=== PATIENT | male | born 1955 | race Caucasian/White ===

== ENCOUNTER 2021-08-10 23:26 | Inpatient (IN) | payer BC ==
[~2021-08-10] VITALS: Ht 175.3 cm; Wt 90.7 kg
[2021-08-10] MEDS ORDERED: ACETAMINOPHEN 650 MG/SUPP.RECT RC ONE (23:40)
[2021-08-10] MEDS ORDERED: VANCOMYCIN 1 GM VIAL ONE (23:47)
[2021-08-10] MEDS ORDERED: PIPERACILLIN /TAZOBACTAM 3.375 G VIAL IV ONE (23:47)
[2021-08-11] VITALS (34 sets, daily range): BP systolic 53–120; BP diastolic 25–74
[2021-08-11] MEDS ORDERED: ACETAMINOPHEN 650 MG/SUPP.RECT RC ONE
[2021-08-11] MEDS ORDERED: PIPERACILLIN /TAZOBACTAM 3.375 G in IV D5W 50 ML IV ONE ×2
[2021-08-11] MEDS ORDERED: VANCOMYCIN 1 GM in IV D5W 250 ML IV ONE ×4
[2021-08-11] MEDS ORDERED: DEXTROSE 50%-WATER 50 ML DISP.SYRIN ONE (00:05)
[2021-08-11] MEDS ORDERED: DEXTROSE 50%-WATER 50 ML DISP.SYRIN IVP ONE (00:30)
[2021-08-11 00:33] LABS: BASOPHILS # (AUTO) 0.1 K/uL (0.0-0.2); BASOPHILS % (AUTO) 1.1 % (0.0-2.0); EOSINOPHILS % (AUTO) 0.4 % (0.0-6.0); HEMATOCRIT 34 % (39-51); HEMOGLOBIN 10.7 g/dL (13.5-17.5); LYMPHOCYTES # (AUTO) 1.8 K/uL (0.8-4.8); LYMPHOCYTES % (AUTO) 14.9 % (20.0-44.0); MEAN CORPUSCULAR HGB CONC 32 g/dl (31.0-36.0); MEAN CORPUSCULAR VOLUME 109 fL (80-96); MONOCYTES # (AUTO) 0.7 K/uL (0.1-1.30); MONOCYTES % (AUTO) 5.5 % (2.0-12.0); NEUTROPHILS # (AUTO) 9.5 K/uL (1.8-8.9); NEUTROPHILS % (AUTO) 78.1 % (43.0-81.0); PLATELET COUNT (AUTO) 195 K/uL (150-450); RED BLOOD CELL COUNT(AUTO) 3.13 MIL/uL (4.5-6.0); WHITE BLOOD COUNT (AUTO) 12.1 K/uL (4.3-11.0)
[2021-08-11 00:37] LABS: BILIRUBIN,URINE MODERATE (NEGATIVE); COLOR,URINE AMBER (YELLOW); LEUKOCYTE ESTERASE ,URINE NEGATIVE (NEGATIVE); NITRITE, URINE POSITIVE (NEGATIVE); PROTEIN,URINE TRACE mg/dl (NEGATIVE); UGLUCOSE NEGATIVE (NEGATIVE)
[2021-08-11 01:09] LABS: ALANINE AMINOTRANSFERASE 19 U/L (12-78); ALBUMIN 1.6 g/dL (3.4-5.0); ALKALINE PHOSPHATASE 91 U/L (46-116); ASPARTATE AMINOTRANSFERASE 49 U/L (15-37); BILIRUBIN,DIRECT 0.6 mg/dL (0.0-0.2); BILIRUBIN,TOTAL 1.2 mg/dL (0.2-1.0); CALCIUM, SERUM 7.7 mg/dL (8.5-10.1); CARBON DIOXIDE 22 mmol/L (21-32); CREATININE 2.7 mg/dL (0.6-1.3); GLUCOSE 97 mg/dL (74-106); POTASSIUM 3.7 mmol/L (3.5-5.1); TOTAL PROTEIN, SERUM 5.7 g/dL (6.4-8.2); UREA NITROGEN, BLOOD 29 mg/dL (7-18)
[2021-08-11 01:12] LABS: CHLORIDE 130 mmol/L (98-107); SODIUM SERUM 161 mmol/L (136-145)
[2021-08-11] MEDS ORDERED: IV NS 0.9% 1,000 ML BAG IV ONE ×2 (02:00)
[2021-08-11] MEDS ORDERED: ACETAMINOPHEN 650 MG/SUPP.RECT RC PRN (04:00)
[2021-08-11] MEDS ORDERED: ONDANSETRON HCL/PF 4 MG/2 ML VIAL IVP PRN (04:00)
[2021-08-11] MEDS ORDERED: IV D5W 1,000 ML IV ONE ×3 (04:00→06:30)
[2021-08-11] MEDS ORDERED: IV D5W 1,000 ML IV PRN (04:30)
[2021-08-11] MEDS ORDERED: PIPERACILLIN /TAZOBACTAM 3.375 G in IV D5W 50 ML IV SCH (06:00)
[2021-08-11 06:18] LABS: BACTERIA,URINE Rare /HPF (None Seen); RBC,URINE NONE SEEN /HPF (0-2); WBC,URINE 0-2 /HPF (0-3)
[2021-08-11 06:19] LABS: SQUAMOUS EPITHELIAL CELL,UR Few /HPF (None Seen)
[2021-08-11 06:35] LABS: BAND % (MANUAL) 6 % (0.0-5.0); LYMPHOCYTES % (MANUAL) 7 % (16-48); MONOCYTES % (MANUAL) 2 % (0-11.0); NEUTROPHILS % (MANUAL) 85 (42-76)
[2021-08-11] MEDS: PANTOPRAZOLE 40 MG VIAL IV SCH (08:18)
[2021-08-11] MEDS ORDERED: THIA100T88 PO (08:39)
[2021-08-11] MEDS ORDERED: PANT40TA49 PO (08:39)
[2021-08-11] MEDS ORDERED: POTA20TA29 PO (08:39)
[2021-08-11] MEDS ORDERED: CYAN-51 PO (08:39)
[2021-08-11] MEDS ORDERED: ASCO500C17 PO (08:39)
[2021-08-11] MEDS ORDERED: MULT-439 PO (08:39)
[2021-08-11] MEDS ORDERED: LORA-259 PO (08:39)
[2021-08-11] MEDS ORDERED: RIFA550T PO (08:39)
[2021-08-11] MEDS ORDERED: LEVO25TA7 PO (08:39)
[2021-08-11] MEDS ORDERED: FOLI0.8C PO (08:39)
[2021-08-11] MEDS: THIAMINE HCL 100 MG TABLET PO SCH (09:00)
[2021-08-11] MEDS: FOLIC ACID 1 MG TABLET PO SCH (09:00)
[2021-08-11] MEDS: MULTIVIT W/MINERALS 1 TAB TABLET PO SCH (09:00)
[2021-08-11] MEDS: LORAZEPAM 1 MG TABLET PO SCH ×2 (09:00→17:00)
[2021-08-11] MEDS: PANTOPRAZOLE 40 MG TABLET.DR PO SCH (09:00)
[2021-08-11] MEDS ORDERED: [UNRECOGNIZED DRUG - OTHER] PO SCH (09:00)
[2021-08-11] MEDS: ASCORBIC ACID 500 MG TABLET PO SCH (09:00)
[2021-08-11] MEDS: RIFAXIMIN 550 MG TABLET PO SCH ×2 (09:00→18:47)
[2021-08-11] MEDS: LEVOTHYROXINE SODIUM 25 MCG TABLET PO SCH (09:00)
[2021-08-11 09:11] LABS: ABG BASE EXCESS -10.4 mmol/L; ABG OXYGEN SATURATION 96.9 % (92.0-98.5); ABG PCO2 24.1 mmHg (35.0-45.0); ABG PH 7.368 (7.350-7.450); ABG PO2 102.4 mmHg (75.0-100.0); AaDO2 155.1 mmHg; COHb 0.3 % (0.5-1.5); MetHb 0.3 % (0.0-1.5); O2Hb 96.3 % (94.0-97.0); SITE, ABG Left Radial; VENT MODE, BG 5L NC
[2021-08-11] MEDS: PIPERACILLIN /TAZOBACTAM 3.375 G in IV D5W 100 ML IV SCH ×2 (10:16→18:49)
[2021-08-11 10:43] LABS: BASOPHILS # (AUTO) 0.1 K/uL (0.0-0.2); BASOPHILS % (AUTO) 0.8 % (0.0-2.0); EOSINOPHILS % (AUTO) 0.3 % (0.0-6.0); HEMATOCRIT 32 % (39-51); HEMOGLOBIN 9.6 g/dL (13.5-17.5); LYMPHOCYTES # (AUTO) 1.6 K/uL (0.8-4.8); LYMPHOCYTES % (AUTO) 12.1 % (20.0-44.0); MEAN CORPUSCULAR HGB CONC 30 g/dl (31.0-36.0); MEAN CORPUSCULAR VOLUME 116 fL (80-96); MONOCYTES # (AUTO) 0.8 K/uL (0.1-1.30); MONOCYTES % (AUTO) 6.2 % (2.0-12.0); NEUTROPHILS % (AUTO) 80.6 % (43.0-81.0); PLATELET COUNT (AUTO) 96 K/uL (150-450); RED BLOOD CELL COUNT(AUTO) 2.75 MIL/uL (4.5-6.0); WHITE BLOOD COUNT (AUTO) 13.6 K/uL (4.3-11.0)
[2021-08-11 11:11] LABS: BILIRUBIN,TOTAL 0.9 mg/dL (0.2-1.0); CALCIUM, SERUM 6.6 mg/dL (8.5-10.1); CREATININE 3.1 mg/dL (0.6-1.3); MAGNESIUM 1.6 mg/dL (1.8-2.4); PHOSPHORUS 2.7 mg/dL (2.5-4.9); POTASSIUM 3.3 mmol/L (3.5-5.1)
[2021-08-11] MEDS: NOREPINEPHRINE 8 MG in IV NS 0.9% 242 ML IV PRN ×2 (11:30→13:45)
[2021-08-11] MEDS ORDERED: IV D5/0.45 NACL 1,000 ML IV SCH (11:30)
[2021-08-11 11:31] LABS: BAND % (MANUAL) 4 % (0.0-5.0); LYMPHOCYTES % (MANUAL) 9 % (16-48); MONOCYTES % (MANUAL) 5 % (0-11.0); NEUTROPHILS % (MANUAL) 82 (42-76)
[2021-08-11 11:48] LABS: THYROID STIMULATING HORMONE 7.33 uIU/mL (0.358-3.74)
[2021-08-11 11:59] LABS: ALBUMIN 1.3 g/dL (3.4-5.0)
[2021-08-11] MEDS ORDERED: PIPERACILLIN /TAZOBACTAM 3.375 G in IV D5W 100 ML IV SCH (12:00)
[2021-08-11] MEDS ORDERED: IV D5/0.45 NACL 1,000 ML IV PRN (13:00)
[2021-08-11] MEDS: ALBUTEROL FS 2.5 MG/0.5 ML VIAL.NEB NEB SCH ×2 (15:31→19:30)
[2021-08-11] MEDS: IPRATROPIUM NEB FS 0.5 MG/2.5 ML AMPUL.NEB NEB SCH ×2 (15:31→20:15)
[2021-08-11] MEDS ORDERED: HEPARIN SODIUM, PORCINE 5000 UNITS/1 ML VIAL IV ONE (20:00)
[2021-08-11] MEDS ORDERED: HEPARIN INFUSION/D5W 500 ML IV ONE (20:26)
[2021-08-11] MEDS: HEPARIN INFUSION/D5W 500 ML IV PRN (20:33)
[2021-08-11 20:57] LABS: ABG BASE EXCESS -9.9 mmol/L; ABG OXYGEN SATURATION 89.8 % (92.0-98.5); ABG PCO2 16.9 mmHg (35.0-45.0); ABG PH 7.459 (7.350-7.450); ABG PO2 60.9 mmHg (75.0-100.0); AaDO2 176.2 mmHg; COHb 0.3 % (0.5-1.5); MetHb 0.3 % (0.0-1.5); O2Hb 89.3 % (94.0-97.0); SITE, ABG Right Radial; VENT MODE, BG 4L NASAL CANNULA
[2021-08-11] MEDS ORDERED: IV NS 0.9% 1,000 ML IV ONE (21:00)
[2021-08-11] MEDS ORDERED: IV D5/0.45 NACL 1,000 ML IV ONE (21:30)
[2021-08-11] MEDS ORDERED: PHENYLEPHRINE 10 MG/ML VIAL ONE (22:44)
[2021-08-11] MEDS: PHENYLEPHRINE 50 MG in IV NS 0.9% 245 ML IV PRN (22:55)
[2021-08-11] MEDS ORDERED: IV LR 1000 ML 1,000 ML IV ONE ×2 (23:00)
[2021-08-12] VITALS (59 sets, daily range): BP systolic 60–126; BP diastolic 22–74
[2021-08-12] MEDS ORDERED: IV LR 1000 ML 1,000 ML IV PRN
[2021-08-12] MEDS: VANCOMYCIN 0.75 GM in IV D5W 250 ML IV SCH (01:17)
[2021-08-12] MEDS: PIPERACILLIN /TAZOBACTAM 3.375 G in IV D5W 100 ML IV SCH ×2 (02:50→13:10)
[2021-08-12 05:15] LABS: BASOPHILS # (AUTO) 0.3 K/uL (0.0-0.2); EOSINOPHILS % (AUTO) 0.3 % (0.0-6.0); HEMATOCRIT 31 % (39-51); HEMOGLOBIN 9.7 g/dL (13.5-17.5); LYMPHOCYTES # (AUTO) 2.1 K/uL (0.8-4.8); LYMPHOCYTES % (AUTO) 7.1 % (20.0-44.0); MEAN CORPUSCULAR HGB CONC 31 g/dl (31.0-36.0); MEAN CORPUSCULAR VOLUME 109 fL (80-96); MONOCYTES # (AUTO) 1.9 K/uL (0.1-1.30); MONOCYTES % (AUTO) 6.4 % (2.0-12.0); NEUTROPHILS # (AUTO) 24.8 K/uL (1.8-8.9); NEUTROPHILS % (AUTO) 85.2 % (43.0-81.0); PLATELET COUNT (AUTO) 192 K/uL (150-450); RED BLOOD CELL COUNT(AUTO) 2.86 MIL/uL (4.5-6.0); WHITE BLOOD COUNT (AUTO) 29.1 K/uL (4.3-11.0)
[2021-08-12 05:23] LABS: CALCIUM, SERUM 6.3 mg/dL (8.5-10.1); CREATININE 3.8 mg/dL (0.6-1.3); POTASSIUM 3.2 mmol/L (3.5-5.1)
[2021-08-12] MEDS ORDERED: PHENYLEPHRINE 10 MG/ML VIAL ONE (06:01)
[2021-08-12] MEDS: PHENYLEPHRINE 50 MG in IV NS 0.9% 245 ML IV PRN ×5 (06:12→23:29)
[2021-08-12] MEDS: IPRATROPIUM NEB FS 0.5 MG/2.5 ML AMPUL.NEB NEB SCH ×4 (07:41→19:14)
[2021-08-12] MEDS: ALBUTEROL FS 2.5 MG/0.5 ML VIAL.NEB NEB SCH ×4 (07:41→19:14)
[2021-08-12 08:16] LABS: LYMPHOCYTES % (MANUAL) 18 % (16-48); MONOCYTES % (MANUAL) 4 % (0-11.0); NEUTROPHILS % (MANUAL) 78 (42-76)
[2021-08-12] MEDS: PANTOPRAZOLE 40 MG VIAL IV SCH (09:35)
[2021-08-12] MEDS: MULTIVIT W/MINERALS 1 TAB TABLET PO SCH (09:35)
[2021-08-12] MEDS: RIFAXIMIN 550 MG TABLET PO SCH ×2 (09:35→16:46)
[2021-08-12] MEDS: CYANOCOBALAMIN 500 MCG TABLET PO SCH (09:36)
[2021-08-12] MEDS: ASCORBIC ACID 500 MG TABLET PO SCH (09:36)
[2021-08-12] MEDS: FOLIC ACID 1 MG TABLET PO SCH (09:36)
[2021-08-12] MEDS: THIAMINE HCL 100 MG TABLET PO SCH (09:37)
[2021-08-12] MEDS: PANTOPRAZOLE 40 MG TABLET.DR PO SCH (09:37)
[2021-08-12] MEDS: LEVOTHYROXINE SODIUM 25 MCG TABLET PO SCH (09:37)
[2021-08-12] MEDS: LORAZEPAM 1 MG TABLET PO SCH ×2 (09:38→16:46)
[2021-08-12] MEDS ORDERED: KETAMINE HCL(200MG/20ML) 10 MG/ML VIAL IM ONE (10:30)
[2021-08-12] MEDS ORDERED: KETAMINE HCL (500MG/10ML) 50 MG/ML VIAL IM ONE ×2 (10:30→11:30)
[2021-08-12] MEDS ORDERED: KETAMINE HCL (500MG/10ML) 50 MG/ML VIAL ONE (10:43)
[2021-08-12] MEDS: NOREPINEPHRINE 8 MG in IV NS 0.9% 242 ML IV PRN (11:24)
[2021-08-12] MEDS ORDERED: SODIUM BICARBONATE SYR 50 MEQ/50 ML DISP.SYRIN IV ONE ×2 (11:30→16:00)
[2021-08-12] MEDS ORDERED: Sodium Bicarbonate 100 MEQ in IV D5W 1,000 ML IV PRN ×4 (12:00)
[2021-08-12] MEDS ORDERED: Sodium Bicarbonate 100 MEQ in IV D5W 1,000 ML IV SCH (13:00)
[2021-08-12 14:49] LABS: ABG BASE EXCESS -16.6 mmol/L; ABG PCO2 41.2 mmHg (35.0-45.0); ABG PH 7.096 (7.350-7.450); ABG PO2 104.6 mmHg (75.0-100.0); AaDO2 422.5 mmHg; COHb 0.1 % (0.5-1.5); MetHb 0.5 % (0.0-1.5); O2Hb 96.4 % (94.0-97.0); SITE, ABG Right Femoral; VT, ABG 500 mL
[2021-08-12 14:50] LABS: ABG BASE EXCESS -17.1 mmol/L; ABG OXYGEN SATURATION 97.8 % (92.0-98.5); ABG PCO2 45.5 mmHg (35.0-45.0); ABG PH 7.061 (7.350-7.450); ABG PO2 135.6 mmHg (75.0-100.0); AaDO2 531.9 mmHg; COHb 0.3 % (0.5-1.5); MetHb 0.5 % (0.0-1.5); SITE, ABG Right Radial
[2021-08-12] MEDS: Sodium Bicarbonate 150 MEQ in IV D5W 1,000 ML IV SCH (16:33)
[2021-08-12 19:24] LABS: ABG BASE EXCESS -12.1 mmol/L; ABG OXYGEN SATURATION 97.6 % (92.0-98.5); ABG PCO2 32.4 mmHg (35.0-45.0); ABG PH 7.252 (7.350-7.450); AaDO2 476.3 mmHg; COHb 0.3 % (0.5-1.5); MetHb 0.4 % (0.0-1.5); O2Hb 96.9 % (94.0-97.0); SITE, ABG Left Radial; VENT MODE, BG AC28 550 80% +0
[2021-08-13] VITALS (91 sets, daily range): BP systolic 60–169; BP diastolic 17–90
[2021-08-13] MEDS: NOREPINEPHRINE 8 MG in IV NS 0.9% 242 ML IV PRN ×3 (01:06→21:21)
[2021-08-13] MEDS: VANCOMYCIN 0.75 GM in IV D5W 250 ML IV SCH (01:39)
[2021-08-13] MEDS: PIPERACILLIN /TAZOBACTAM 3.375 G in IV D5W 100 ML IV SCH ×2 (02:40→13:00)
[2021-08-13] MEDS: HEPARIN INFUSION/D5W 500 ML IV PRN (03:03)
[2021-08-13] MEDS: PHENYLEPHRINE 50 MG in IV NS 0.9% 245 ML IV PRN ×2 (03:22→07:24)
[2021-08-13] MEDS: IV NS 0.9% 250 ML IV PRN ×2 (03:53→22:13)
[2021-08-13] MEDS: Sodium Bicarbonate 150 MEQ in IV D5W 1,000 ML IV SCH (04:02)
[2021-08-13 05:03] LABS: CALCIUM, SERUM 6.1 mg/dL (8.5-10.1); CREATININE 4.1 mg/dL (0.6-1.3)
[2021-08-13] MEDS: PROPOFOL 100 ML IV PRN ×4 (07:26→22:22)
[2021-08-13] MEDS: IPRATROPIUM NEB FS 0.5 MG/2.5 ML AMPUL.NEB NEB SCH ×4 (07:44→21:01)
[2021-08-13] MEDS: ALBUTEROL FS 2.5 MG/0.5 ML VIAL.NEB NEB SCH ×4 (07:44→21:01)
[2021-08-13] MEDS: THIAMINE HCL 100 MG TABLET PO SCH (08:22)
[2021-08-13] MEDS: FOLIC ACID 1 MG TABLET PO SCH (08:22)
[2021-08-13] MEDS: MULTIVIT W/MINERALS 1 TAB TABLET PO SCH (08:22)
[2021-08-13] MEDS: CYANOCOBALAMIN 500 MCG TABLET PO SCH (08:22)
[2021-08-13] MEDS: LORAZEPAM 1 MG TABLET PO SCH ×2 (08:22→16:47)
[2021-08-13] MEDS: RIFAXIMIN 550 MG TABLET PO SCH ×2 (08:23→16:47)
[2021-08-13] MEDS: ASCORBIC ACID 500 MG TABLET PO SCH (08:24)
[2021-08-13] MEDS: PANTOPRAZOLE 40 MG VIAL IV SCH (08:24)
[2021-08-13] MEDS: LEVOTHYROXINE SODIUM 25 MCG TABLET PO SCH (08:24)
[2021-08-13 08:41] LABS: ABG BASE EXCESS -5.7 mmol/L; ABG PCO2 28.9 mmHg (35.0-45.0); ABG PO2 81.4 mmHg (75.0-100.0); AaDO2 458.7 mmHg; COHb 0.2 % (0.5-1.5); MetHb 0.3 % (0.0-1.5); O2Hb 94.5 % (94.0-97.0); PEEP,BG 0 cm H2O; SITE, ABG Right Radial; VENT MODE, BG AC 80%; VT, ABG 550 mL
[2021-08-13] MEDS: IV D5/0.45 NACL 1,000 ML IV PRN ×2 (10:34→22:12)
[2021-08-13] MEDS: PHENYLEPHRINE 100 MG in IV NS 0.9% 240 ML IV PRN ×2 (10:41→21:00)
[2021-08-13] MEDS ORDERED: ROCURONIUM BROMIDE 50 MG/5 ML IV ONE (12:51)
[2021-08-13 17:12] LABS: BASOPHILS # (AUTO) 0.1 K/uL (0.0-0.2); BASOPHILS % (AUTO) 0.4 % (0.0-2.0); EOSINOPHILS % (AUTO) 0.5 % (0.0-6.0); HEMATOCRIT 34 % (39-51); HEMOGLOBIN 10.7 g/dL (13.5-17.5); LYMPHOCYTES # (AUTO) 1.3 K/uL (0.8-4.8); LYMPHOCYTES % (AUTO) 7.8 % (20.0-44.0); MEAN CORPUSCULAR HGB CONC 32 g/dl (31.0-36.0); MEAN CORPUSCULAR VOLUME 107 fL (80-96); MONOCYTES # (AUTO) 0.9 K/uL (0.1-1.30); MONOCYTES % (AUTO) 5.6 % (2.0-12.0); NEUTROPHILS # (AUTO) 14.6 K/uL (1.8-8.9); NEUTROPHILS % (AUTO) 85.7 % (43.0-81.0); PLATELET COUNT (AUTO) 105 K/uL (150-450); RED BLOOD CELL COUNT(AUTO) 3.16 MIL/uL (4.5-6.0)
[2021-08-13 17:41] LABS: BAND % (MANUAL) 2 % (0.0-5.0); LYMPHOCYTES % (MANUAL) 10 % (16-48)
[2021-08-13 17:42] LABS: EOSINOPHILS % (MANUAL) 1 % (0-4); MONOCYTES % (MANUAL) 5 % (0-11.0); NEUTROPHILS % (MANUAL) 82 (42-76)
[2021-08-14] VITALS (107 sets, daily range): BP systolic 58–114; BP diastolic 15–52
[2021-08-14] MEDS: PIPERACILLIN /TAZOBACTAM 3.375 G in IV D5W 100 ML IV SCH ×2 (02:32→13:51)
[2021-08-14] MEDS: PROPOFOL 100 ML IV PRN ×4 (02:32→18:10)
[2021-08-14] MEDS: HEPARIN INFUSION/D5W 500 ML IV PRN (02:57)
[2021-08-14] MEDS ORDERED: NOREPINEPHRINE 8MG/250ML RTU 250 ML IV ONE (03:54)
[2021-08-14] MEDS: PHENYLEPHRINE 100 MG in IV NS 0.9% 240 ML IV PRN ×3 (04:01→18:09)
[2021-08-14 04:22] LABS: BASOPHILS % (AUTO) 0.3 % (0.0-2.0); EOSINOPHILS % (AUTO) 1.1 % (0.0-6.0); HEMATOCRIT 31 % (39-51); LYMPHOCYTES # (AUTO) 1.5 K/uL (0.8-4.8); MEAN CORPUSCULAR HGB CONC 32 g/dl (31.0-36.0); MEAN CORPUSCULAR VOLUME 108 fL (80-96); MONOCYTES # (AUTO) 0.8 K/uL (0.1-1.30); MONOCYTES % (AUTO) 5.1 % (2.0-12.0); NEUTROPHILS # (AUTO) 12.4 K/uL (1.8-8.9); NEUTROPHILS % (AUTO) 83.5 % (43.0-81.0); PLATELET COUNT (AUTO) 89 K/uL (150-450); WHITE BLOOD COUNT (AUTO) 14.9 K/uL (4.3-11.0)
[2021-08-14 04:31] LABS: CREATININE 4.6 mg/dL (0.6-1.3)
[2021-08-14] MEDS: NOREPINEPHRINE 8 MG in IV NS 0.9% 242 ML IV PRN ×3 (04:43→18:09)
[2021-08-14 05:01] LABS: CALCIUM, SERUM 5.9 mg/dL (8.5-10.1); POTASSIUM 2.8 mmol/L (3.5-5.1)
[2021-08-14] MEDS: POTASSIUM CL. PREMIX PERIPHER. 50 ML IV SCH ×4 (06:40→11:06)
[2021-08-14] MEDS: ALBUTEROL FS 2.5 MG/0.5 ML VIAL.NEB NEB SCH ×4 (07:52→19:47)
[2021-08-14] MEDS: IPRATROPIUM NEB FS 0.5 MG/2.5 ML AMPUL.NEB NEB SCH ×4 (07:52→19:47)
[2021-08-14] MEDS: RIFAXIMIN 550 MG TABLET PO SCH ×2 (08:26→16:03)
[2021-08-14] MEDS: FOLIC ACID 1 MG TABLET PO SCH (08:26)
[2021-08-14] MEDS: CYANOCOBALAMIN 500 MCG TABLET PO SCH (08:27)
[2021-08-14] MEDS: ASCORBIC ACID 500 MG TABLET PO SCH (08:27)
[2021-08-14] MEDS: LORAZEPAM 1 MG TABLET PO SCH ×2 (08:28→16:03)
[2021-08-14] MEDS: THIAMINE HCL 100 MG TABLET PO SCH (08:28)
[2021-08-14] MEDS: MULTIVIT W/MINERALS 1 TAB TABLET PO SCH (08:28)
[2021-08-14] MEDS: PANTOPRAZOLE 40 MG VIAL IV SCH (08:28)
[2021-08-14] MEDS: LEVOTHYROXINE SODIUM 25 MCG TABLET PO SCH (08:28)
[2021-08-14] MEDS ORDERED: IV NS 0.9% 500 ML BAG IV ONE (09:30)
[2021-08-14 09:32] LABS: ABG BASE EXCESS -12.5 mmol/L; ABG OXYGEN SATURATION 90.5 % (92.0-98.5); ABG PCO2 40.1 mmHg (35.0-45.0); ABG PH 7.189 (7.350-7.450); ABG PO2 71.7 mmHg (75.0-100.0); AaDO2 456.6 mmHg; COHb 0.3 % (0.5-1.5); MetHb 0.5 % (0.0-1.5); O2Hb 89.8 % (94.0-97.0); PEEP,BG 0 cm H2O; SITE, ABG Right Brachial; VT, ABG 550 mL
[2021-08-14] MEDS ORDERED: IV NS 0.9% 500 ML IV ONE (10:00)
[2021-08-14] MEDS ORDERED: VANCOMYCIN 0.75 GM in IV D5W 250 ML IV SCH (13:00)
[2021-08-14] MEDS ORDERED: Potassium Chloride 20 MEQ in IV NS 0.9% 1,000 ML IV SCH (14:00)
[2021-08-14] MEDS: NOREPINEPHRINE 32 MG in IV NS 0.9% 218 ML IV PRN (21:36)
[2021-08-15] VITALS (100 sets, daily range): BP systolic 65–115; BP diastolic 18–70
[2021-08-15] MEDS: PROPOFOL 100 ML IV PRN ×2 (00:23→05:22)
[2021-08-15] MEDS: PHENYLEPHRINE 100 MG in IV NS 0.9% 240 ML IV PRN ×4 (01:06→19:53)
[2021-08-15] MEDS: PIPERACILLIN /TAZOBACTAM 3.375 G in IV D5W 100 ML IV SCH ×2 (01:36→14:16)
[2021-08-15] MEDS: IV NS 0.9% 250 ML IV PRN (01:37)
[2021-08-15] MEDS: HEPARIN INFUSION/D5W 500 ML IV PRN (03:08)
[2021-08-15] MEDS: NOREPINEPHRINE 32 MG in IV NS 0.9% 218 ML IV PRN ×4 (03:27→19:57)
[2021-08-15] MEDS: VASOPRESSIN INJ 40 UNIT in IV NS 0.9% 38 ML IV PRN ×2 (04:32→14:26)
[2021-08-15 04:33] LABS: CREATININE 4.9 mg/dL (0.6-1.3); POTASSIUM 4.8 mmol/L (3.5-5.1)
[2021-08-15 04:52] LABS: CALCIUM, SERUM 5.9 mg/dL (8.5-10.1)
[2021-08-15] MEDS ORDERED: VASOPRESSIN INJ 20 UNIT/ML VIAL ONE (04:57)
[2021-08-15] MEDS ORDERED: DEXTROSE 50%-WATER 50 ML DISP.SYRIN IVP ONE ×2 (05:00→06:00)
[2021-08-15] MEDS: IV 10% DEXTROSE 1,000 ML IV PRN ×2 (05:45→22:53)
[2021-08-15] MEDS: BLOOD SUGAR DIAGNOSTIC 1 EACH STRIP IN SCH ×18 (06:04→23:43)
[2021-08-15] MEDS ORDERED: Z GUARD REMEDY 4 OZ OINT TP PRN (07:00)
[2021-08-15] MEDS: ALBUTEROL FS 2.5 MG/0.5 ML VIAL.NEB NEB SCH ×4 (07:06→19:47)
[2021-08-15] MEDS: IPRATROPIUM NEB FS 0.5 MG/2.5 ML AMPUL.NEB NEB SCH ×4 (07:06→19:47)
[2021-08-15 07:58] LABS: HEMATOCRIT 35 % (39-51); HEMOGLOBIN 10.1 g/dL (13.5-17.5); MEAN CORPUSCULAR HGB CONC 29 g/dl (31.0-36.0); MEAN CORPUSCULAR VOLUME 116 fL (80-96); PLATELET COUNT (AUTO) 106 K/uL (150-450); RED BLOOD CELL COUNT(AUTO) 2.99 MIL/uL (4.5-6.0)
[2021-08-15 08:01] LABS: WHITE BLOOD COUNT (AUTO) 31.2 K/uL (4.3-11.0)
[2021-08-15] MEDS: ASCORBIC ACID 500 MG TABLET PO SCH (08:19)
[2021-08-15] MEDS: FOLIC ACID 1 MG TABLET PO SCH (08:19)
[2021-08-15] MEDS: CYANOCOBALAMIN 500 MCG TABLET PO SCH (08:20)
[2021-08-15] MEDS: LORAZEPAM 1 MG TABLET PO SCH ×2 (08:20→16:36)
[2021-08-15] MEDS: LEVOTHYROXINE SODIUM 25 MCG TABLET PO SCH (08:20)
[2021-08-15] MEDS: MULTIVIT W/MINERALS 1 TAB TABLET PO SCH (08:25)
[2021-08-15] MEDS: THIAMINE HCL 100 MG TABLET PO SCH (08:25)
[2021-08-15] MEDS: PANTOPRAZOLE 40 MG VIAL IV SCH (08:25)
[2021-08-15] MEDS: RIFAXIMIN 550 MG TABLET PO SCH ×2 (08:26→16:36)
[2021-08-15] MEDS: Z GUARD REMEDY 4 OZ OINT TP SCH (08:26)
[2021-08-15 09:29] LABS: ABG BASE EXCESS -24.8 mmol/L; ABG PCO2 34.6 mmHg (35.0-45.0); ABG PO2 130.6 mmHg (75.0-100.0); COHb 0.3 % (0.5-1.5); MetHb 0.8 % (0.0-1.5); O2Hb 96.2 % (94.0-97.0); PEEP,BG 0 cm H2O; SITE, ABG Left Brachial; VT, ABG 575 mL
[2021-08-15] MEDS: DEXTROSE 50%-WATER 50 ML DISP.SYRIN IVP PRN ×4 (09:44→23:05)
[2021-08-15] MEDS ORDERED: SODIUM BICARBONATE SYR 50 MEQ/50 ML DISP.SYRIN IV ONE (10:00)
[2021-08-15 12:28] LABS: CREATININE 4.7 mg/dL (0.6-1.3); POTASSIUM 4.8 mmol/L (3.5-5.1)
[2021-08-15 12:59] LABS: CALCIUM, SERUM 5.3 mg/dL (8.5-10.1)
[2021-08-15 16:04] LABS: BAND % (MANUAL) 17 % (0.0-5.0); EOSINOPHILS % (MANUAL) 1 % (0-4); LYMPHOCYTES % (MANUAL) 4 % (16-48); MONOCYTES % (MANUAL) 5 % (0-11.0); NEUTROPHILS % (MANUAL) 70 (42-76)
[2021-08-15 16:09] LABS: METAMYELOCYTES % 3 % (0-0)
[2021-08-16] VITALS (93 sets, daily range): BP systolic 56–80; BP diastolic 31–42
[2021-08-16] MEDS: DEXTROSE 50%-WATER 50 ML DISP.SYRIN IVP PRN ×6 (00:54→22:04)
[2021-08-16] MEDS: BLOOD SUGAR DIAGNOSTIC 1 EACH STRIP IN SCH ×15 (00:55→22:53)
[2021-08-16] MEDS: NOREPINEPHRINE 32 MG in IV NS 0.9% 218 ML IV PRN ×4 (01:30→18:28)
[2021-08-16] MEDS: PIPERACILLIN /TAZOBACTAM 3.375 G in IV D5W 100 ML IV SCH ×2 (02:00→15:55)
[2021-08-16] MEDS: PHENYLEPHRINE 100 MG in IV NS 0.9% 240 ML IV PRN ×4 (02:21→22:09)
[2021-08-16 04:24] LABS: CREATININE 5.2 mg/dL (0.6-1.3)
[2021-08-16] MEDS ORDERED: Calcium Gluconate 0.465 MEQ/ML VIAL IV ONE (05:44)
[2021-08-16] MEDS ORDERED: Calcium Gluconate 1GM/10ML 4.65 MEQ in IV D5W 50 ML IV ONE (06:00)
[2021-08-16] MEDS: VASOPRESSIN INJ 40 UNIT in IV NS 0.9% 38 ML IV PRN ×2 (07:21→22:09)
[2021-08-16] MEDS: ALBUTEROL FS 2.5 MG/0.5 ML VIAL.NEB NEB SCH ×4 (08:14→19:52)
[2021-08-16] MEDS: IPRATROPIUM NEB FS 0.5 MG/2.5 ML AMPUL.NEB NEB SCH ×4 (08:14→19:52)
[2021-08-16] MEDS: LEVOTHYROXINE SODIUM 25 MCG TABLET PO SCH (08:16)
[2021-08-16] MEDS: CYANOCOBALAMIN 500 MCG TABLET PO SCH (08:16)
[2021-08-16] MEDS: ASCORBIC ACID 500 MG TABLET PO SCH (08:16)
[2021-08-16] MEDS: FOLIC ACID 1 MG TABLET PO SCH (08:16)
[2021-08-16] MEDS: LORAZEPAM 1 MG TABLET PO SCH ×2 (08:16→16:07)
[2021-08-16] MEDS: PANTOPRAZOLE 40 MG VIAL IV SCH (08:17)
[2021-08-16] MEDS: MULTIVIT W/MINERALS 1 TAB TABLET PO SCH (08:17)
[2021-08-16] MEDS: Z GUARD REMEDY 4 OZ OINT TP SCH (08:18)
[2021-08-16] MEDS: THIAMINE HCL 100 MG TABLET PO SCH (08:23)
[2021-08-16] MEDS: RIFAXIMIN 550 MG TABLET PO SCH ×2 (08:23→16:07)
[2021-08-16] MEDS ORDERED: IV 10% DEXTROSE 1,000 ML IV PRN (09:30)
[2021-08-16] MEDS: IV D5/ 0.9% NACL 1,000 ML IV SCH (12:20)
[2021-08-16] MEDS ORDERED: VANCOMYCIN 0.75 GM in IV D5W 250 ML IV SCH (13:00)
[2021-08-16 15:02] LABS: ABG BASE EXCESS -26.9 mmol/L; ABG OXYGEN SATURATION 89.3 % (92.0-98.5); ABG PCO2 38.9 mmHg (35.0-45.0); ABG PH 6.815 (7.350-7.450); ABG PO2 75.1 mmHg (75.0-100.0); COHb 0.3 % (0.5-1.5); MetHb 0.7 % (0.0-1.5); O2Hb 88.4 % (94.0-97.0); SITE, ABG Left Brachial; VENT MODE, BG ac 30 600 100% +0
[2021-08-17] VITALS (38 sets, daily range): BP systolic 27–66; BP diastolic 16–34
[2021-08-17] MEDS: NOREPINEPHRINE 32 MG in IV NS 0.9% 218 ML IV PRN ×2 (00:03→05:36)
[2021-08-17] MEDS: BLOOD SUGAR DIAGNOSTIC 1 EACH STRIP IN SCH ×5 (01:00→09:00)
[2021-08-17] MEDS: DEXTROSE 50%-WATER 50 ML DISP.SYRIN IVP PRN ×3 (01:07→08:29)
[2021-08-17] MEDS: IV D5/ 0.9% NACL 1,000 ML IV SCH (01:50)
[2021-08-17] MEDS: PIPERACILLIN /TAZOBACTAM 3.375 G in IV D5W 100 ML IV SCH (01:57)
[2021-08-17 04:11] LABS: BASOPHILS # (AUTO) 0.2 K/uL (0.0-0.2); BASOPHILS % (AUTO) 0.3 % (0.0-2.0); EOSINOPHILS % (AUTO) 1.3 % (0.0-6.0); HEMATOCRIT 26 % (39-51); HEMOGLOBIN 7.1 g/dL (13.5-17.5); LYMPHOCYTES # (AUTO) 4.8 K/uL (0.8-4.8); LYMPHOCYTES % (AUTO) 9.3 % (20.0-44.0); MEAN CORPUSCULAR HGB CONC 27 g/dl (31.0-36.0); MEAN CORPUSCULAR VOLUME 122 fL (80-96); MONOCYTES # (AUTO) 0.8 K/uL (0.1-1.30); MONOCYTES % (AUTO) 1.5 % (2.0-12.0); NEUTROPHILS # (AUTO) 45.6 K/uL (1.8-8.9); NEUTROPHILS % (AUTO) 87.6 % (43.0-81.0); RED BLOOD CELL COUNT(AUTO) 2.15 MIL/uL (4.5-6.0)
[2021-08-17 04:22] LABS: CALCIUM, SERUM 6.6 mg/dL (8.5-10.1); CREATININE 5.3 mg/dL (0.6-1.3); POTASSIUM 6.1 mmol/L (3.5-5.1)
[2021-08-17] MEDS: PHENYLEPHRINE 100 MG in IV NS 0.9% 240 ML IV PRN (04:48)
[2021-08-17 04:54] LABS: PLATELET COUNT (AUTO) 18 K/uL (150-450)
[2021-08-17] MEDS: IPRATROPIUM NEB FS 0.5 MG/2.5 ML AMPUL.NEB NEB SCH (07:35)
[2021-08-17] MEDS: ALBUTEROL FS 2.5 MG/0.5 ML VIAL.NEB NEB SCH (07:35)
[2021-08-17] MEDS: ASCORBIC ACID 500 MG TABLET PO SCH (08:53)
[2021-08-17] MEDS: FOLIC ACID 1 MG TABLET PO SCH (08:53)
[2021-08-17] MEDS: LEVOTHYROXINE SODIUM 25 MCG TABLET PO SCH (08:53)
[2021-08-17] MEDS: CYANOCOBALAMIN 500 MCG TABLET PO SCH (08:53)
[2021-08-17] MEDS: PANTOPRAZOLE 40 MG VIAL IV SCH (08:53)
[2021-08-17] MEDS: LORAZEPAM 1 MG TABLET PO SCH (08:53)
[2021-08-17] MEDS: MULTIVIT W/MINERALS 1 TAB TABLET PO SCH (08:53)
[2021-08-17] MEDS: RIFAXIMIN 550 MG TABLET PO SCH (08:59)
[2021-08-17] MEDS: THIAMINE HCL 100 MG TABLET PO SCH (08:59)
[2021-08-17] MEDS: Z GUARD REMEDY 4 OZ OINT TP SCH (09:00)
[2021-08-17 11:09] LABS: BAND % (MANUAL) 27 % (0.0-5.0); EOSINOPHILS % (MANUAL) 1 % (0-4); LYMPHOCYTES % (MANUAL) 8 % (16-48); METAMYELOCYTES % 3 % (0-0); MONOCYTES % (MANUAL) 1 % (0-11.0); MYELOCYTES % 3 % (0-0); NEUTROPHILS % (MANUAL) 57 (42-76)
[2021-08-17] MEDS ORDERED: MEROPENEM 500 MG in IV NS 0.9% 50 ML IV SCH (13:00)
== END 2021-08-17 16:10 | DRG 870 ==
LOC: ER 23:34 → TELE-TD 08-11 04:24 → ICU 08-11 10:49
PROVIDERS: ADMIT Internal Medicine; ATTEND Student in an Organized Health Care Education/Training Program
PROC: 02HV33Z Insertion of Infusion Device into Superior Vena Cava, Percutaneous Approach (ICD-10-PCS; 2021-08-11)
PROC: B548ZZA Ultrasonography of Superior Vena Cava, Guidance (ICD-10-PCS; 2021-08-11)
PROC: 5A1955Z Respiratory Ventilation, Greater than 96 Consecutive Hours (ICD-10-PCS; principal; 2021-08-12)
PROC: 0BH18EZ Insertion of Endotracheal Airway into Trachea, Via Natural or Artificial Opening Endoscopic (ICD-10-PCS; 2021-08-12)
DX: A41.9 Sepsis, unspecified organism (principal); E43 Unspecified severe protein-calorie malnutrition; J96.01 Acute respiratory failure with hypoxia; N17.0 Acute kidney failure with tubular necrosis; J96.02 Acute respiratory failure with hypercapnia; R65.21 Severe sepsis with septic shock; J69.0 Pneumonitis due to inhalation of food and vomit; G92.8 Other toxic encephalopathy; D65 Disseminated intravascular coagulation [defibrination syndrome]; I50.33 Acute on chronic diastolic (congestive) heart failure; E87.0 Hyperosmolality and hypernatremia; N39.0 Urinary tract infection, site not specified; E87.2 Acidosis; I47.1 Supraventricular tachycardia; D68.9 Coagulation defect, unspecified; I82.411 Acute embolism and thrombosis of right femoral vein; R47.01 Aphasia; E03.9 Hypothyroidism, unspecified; Z20.822 Contact with and (suspected) exposure to COVID-19; E83.42 Hypomagnesemia; E87.6 Hypokalemia; E86.1 Hypovolemia; K74.60 Unspecified cirrhosis of liver; Z66 Do not resuscitate; E88.09 Other disorders of plasma-protein metabolism, not elsewhere classified; D53.9 Nutritional anemia, unspecified; F10.11 Alcohol abuse, in remission; Z79.899 Other long term (current) drug therapy; N18.9 Chronic kidney disease, unspecified; E87.8 Other disorders of electrolyte and fluid balance, not elsewhere classified
CPT/HCPCS: 31720; 36415; 36569; 36600; 70450-TC; 71045-TC; 80048-TC; 80053-TC; 80076-TC; 80202-TC; 81001; 82140-TC; 82803-TC; 82947-TC; 82962-TC; 83605-TC; 83735-TC; 83880; 84100-TC; 84443-TC; 84484-TC; 85025-TC; 85610-TC; 85730-TC; 87040-TC; 87081-TC; 87086-TC; 93307-TC; 93970-TC; 94002-TC; 94003-TC; 94760-TC; 94799-TC; C9113; C9803; G0378; J0610; J1644; J2185; J2370; J2543; J3370; J3480; J3490; J7030; J7042; J7050; J7060; J7070; J7120